=== PATIENT | female | born 1995 | race African-American/Black ===

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

== ENCOUNTER 2018-02-22 17:25 | Emergency (ER) | payer SELFPAY ==
[~2018-02-22] VITALS: Ht 172.7 cm; Wt 65.0 kg
[2018-02-22 20:17] LABS: HEMOGLOBIN. 12.9 g/dL (12.0-16.0); MEAN CORPUSCULAR HEMOGLOBIN 32.8 pg (28.0-32.0); MEAN CORPUSCULAR VOLUME 96.9 fL (81.0-99.0); MEAN PLATELET VOLUME 10.8 fl (7.4-10.4); PLATELET 202 x1000/uL (130-400); RED BLOOD CELL COUNT 3.93 mill/uL (4.2-5.4); RED CELL DISTRIBUTION WIDTH 12.5 % (11.6-14.6)
[2018-02-22] MEDS ORDERED: SODIUM CHLORIDE 0.9% 1,000 ML IV ONE (20:23)
[2018-02-22] MEDS ORDERED: ONDANSETRON HCL 4MG/2ML INJ IV NR (20:23)
[2018-02-22] MEDS ORDERED: FAMOTIDINE 20MG/2ML VIAL IV NR (20:23)
[2018-02-22 20:24] LABS: INR 1.1; PROTHROMBIN TIME 10.9 sec (9.1-11.1)
[2018-02-22 20:25] LABS: CHLORIDE 102 mEq/L (98-107)
[2018-02-22 20:39] LABS: PLATELET ESTIMATE NORMAL
[2018-02-22 21:08] LABS: HCG SCREEN NEGATIVE
[2018-02-22 23:00] LABS: CLARITY URINE CLOUDY (CLEAR); COLOR URINE DARK YELLOW (YELLOW); KETONES URINE 2+ (NEGATIVE); LEUKOCYTE ESTERASE URINE 1+ (NEGATIVE); NITRITE URINE NEGATIVE (NEGATIVE); OCCULT BLOOD URINE NEGATIVE (NEGATIVE); PH URINE >=9.0 (4.5-8.0); PROTEIN URINE 1+ (NEGATIVE); SPECIFIC GRAVITY URINE 1.035 (1.005-1.030)
[2018-02-22] MEDS ORDERED: CEPHALEXIN 500MG CAPSULE PO ONE (23:15)
[2018-02-22] MEDS ORDERED: NITROFURANTOIN 100MG M/M CAPSULE PO ONE (23:15)
[2018-02-23 00:15] VITALS: BP 118/57
== END 2018-02-23 00:30 | disposition home or self-care (01) ==
LOC: ER 20:21
DX: N30.00 Acute cystitis without hematuria (principal); J45.909 Unspecified asthma, uncomplicated; F17.200 Nicotine dependence, unspecified, uncomplicated; R19.7 Diarrhea, unspecified; R11.2 Nausea with vomiting, unspecified; Z88.0 Allergy status to penicillin
CPT/HCPCS: 36415; 80053; 81003; 81025; 83690; 84703; 85025; 85610; 96361; 96374; 96375; 99284; J2405; J3490